=== PATIENT | male | born 1965 ===

== ENCOUNTER 2017-04-02 11:04 | Outpatient (CLI) | payer OTHER ==
[2017-04-02 12:19] LABS: Cardiac Risk 3.9 (Less than 4.5)
== END 2017-04-02 11:05 | disposition home or self-care (01) ==
LOC: NAVSJIPCSP 11:04
PROVIDERS: ATTEND Internal Medicine
DX: E78.5 Hyperlipidemia, unspecified (principal)
CPT/HCPCS: 36415; 80061